=== PATIENT | female | born 1985 | race Two or more races ===

== ENCOUNTER 2018-12-21 17:54 | Emergency (ER) | payer BC ==
[~2018-12-21] VITALS: Ht 157.5 cm; Wt 54.4 kg
[2018-12-21 19:50] VITALS: BP 125/82
[2018-12-21] MEDS ORDERED: SODIUM CHLORIDE 0.9% 1,000 ML IV ONE (20:00)
[2018-12-21 20:02] LABS: Basophils # (auto) 0 uL; Basophils % (auto) 0.3 % (0.0-2.0); Eosinophils # (auto) 0.1 uL; Eosinophils % (auto) 0.6 % (0.0-7.0); Hematocrit 42.4 % (36.0-46.0); Hemoglobin 14.7 g/dL (12.2-16.2); Lymphocytes # (auto) 2.4 uL; Lymphocytes % (auto) 26.2 % (10.0-50.0); Mean Corpuscular Hemoglobin 31.3 pg (28.0-32.0); Mean Corpuscular Hgb Conc. 34.7 g/dL (32.0-36.0); Mean Corpuscular Volume 90.3 fL (80.0-100.0); Monocytes # (auto) 0.5 uL; Monocytes % (auto) 5.5 % (0.0-12.0); Neutrophils # (auto) 6.1 uL; Neutrophils % (auto) 67.4 % (37.0-80.0); Nucleated Red Blood Cells % 0.1 %; Platelet Count (auto) 179 10^3/uL (140-450); Red Blood Cells 4.69 10^6/uL (4.0-5.20); White Blood Cell 9.1 10^3/uL (4.4-10.8)
[2018-12-21 20:08] LABS: Albumin 3.8 g/dL (3.4-5.0); Anion Gap 4 (5-15); Blood Urea Nitrogen 15 mg/dL (7-18); Calcium 8.6 mg/dL (8.5-10.1); Carbon Dioxide 28 mmol/L (21-32); Chloride 109 mmol/L (98-107); Glucose 91 mg/dL (74-106); Potassium 3.4 mmol/L (3.5-5.1); Sodium 141 mmol/L (136-145)
[2018-12-21 20:14] LABS: Alanine Aminotransferase 16 U/L (13-56); Alkaline Phosphatase 62 U/L (45-117); Aspartate Aminotransferase 13 U/L (15-37); BUN/Creatinine Ratio 26.3; Bilirubin, Total 0.2 mg/dL (0.2-1.0); Creatine Kinase IFCC 101 U/L (26-192); GFR African American 156 mL/min; GFR Non-African American 129 mL/min
[2018-12-21 20:17] LABS: Free T3 2.81 pg/mL (2.3-4.2); Free T4 (Free Thyroxine) 0.97 ng/dL (0.89-1.76)
[2018-12-21 21:14] LABS: Urine WBC None Seen /hpf (0 - 5)
[2018-12-21 21:19] LABS: Urine Pregnacy Test Negative (Negative)
[2018-12-21 21:35] LABS: Alcohol, Urine < 3.0 mg/dL (0-5); Amphetamine Screen, Urine NEGATIVE (NEGATIVE); Barbiturate Scree,Urine NEGATIVE (NEGATIVE); Benzodiazephine Screen, Urine NEGATIVE (NEGATIVE); Cannabinoid Screen, Urine NEGATIVE (NEGATIVE); Cocaine Screen, Urine NEGATIVE (NEGATIVE); Opiate Scree,Urine NEGATIVE (NEGATIVE); Phencyclidine Screen, Urine NEGATIVE (NEGATIVE); Urine Bacteria NONE SEEN /hpf (None Seen); Urine Blood Negative /uL (Negative); Urine Specific Gravity 1.011 (1.001-1.035)
== END 2018-12-21 22:19 | disposition home or self-care (01) ==
LOC: ER 17:54
DX: E86.0 Dehydration (principal); G43.909 Migraine, unspecified, not intractable, without status migrainosus; R42 Dizziness and giddiness
CPT/HCPCS: 36415; 71046; 80053; 80307; 81001; 81025; 82550; 83880; 84439; 84443; 84481; 84484; 84702; 85025; 85379; 93005; 99284; J7030

== ENCOUNTER 2019-05-24 20:09 | Emergency (ER) | payer BC ==
[~2019-05-24] VITALS: Ht 157.5 cm; Wt 54.4 kg
[2019-05-24 23:18] VITALS: BP 128/77
[2019-05-25] MEDS ORDERED: KETOROLAC TROMETH 60MG/2ML VIAL IM ONE (00:30)
== END 2019-05-25 02:09 | disposition home or self-care (01) ==
LOC: ER 20:12
DX: J06.9 Acute upper respiratory infection, unspecified (principal); R07.82 Intercostal pain
CPT/HCPCS: 71045; 96372; 99283; J1885

== ENCOUNTER 2024-09-14 17:27 | Emergency (ER) | payer BC, MEDICAID ==
[~2024-09-14] VITALS: Ht 154.9 cm; Wt 60.4 kg
[2024-09-14 17:29] VITALS: TEMP 98.4
--- NOTE | 2024-09-14 18:25 | ED.PDOC ---
History of Present Illness HPI Comments This is a 38-year-old female who comes in with chief complaint of lower abdominal pain. The patient is also having a significant amount of vaginal bleeding since July 26. The patient states that the bleeding has been increasing and the patient is also having some blood clots. She states that the pain is now a 9/10. She denies any back pain but she has been having some nausea as well as dizziness. There has been no fever or chills. She states that when she was 15 years old she had a similar episode but was never transfused with blood. She was able to ambulate into the emergency department's without any difficulty. Chief Complaint: Vaginal Bleed Time Seen by MD: 17:33 Primary Care Provider: NONE Reviewed Notes: Nurses Notes, Medications, Allergies (No allergies to medications) Allergies: Coded Allergies: NO KNOWN ALLERGIES (Unverified , 09/14/24) Home Meds Active Scripts Ciprofloxacin Hcl (Cipro) 500 Mg Tab, 1 TAB PO BID, #14 TAB Prov:ROQUE JENNINGS MD 09/14/24 Information Source: Patient Mode of Arrival: Ambulatory Severity: Moderate Timing: Days Duration: Since onset Prehospital treatment: None Location: Lower abdominal pain which is worse on the right than the left Associated signs and symptoms Increased vaginal bleeding with dizziness and nausea Past Medical History PAST MEDICAL HISTORY: Asthma, High Lipids Past Medical History (Other): Low blood pressure, cyst in the breast Surgical History: Appendectomy, BTL, Cholecystectomy, , Hernia Repair Surgical History (Other): Cyst removed from the breast 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 History Family History Family History: Family hx of DM, Family hx of liver tali Social History Smoker: Non-Smoker Alcohol: Denies ETOH Use Drugs: Denies Drug Use Lives In: Home Constitutional: reports: others (Dizziness); denies: chills, diaphoresis, fatigue, fever, malaise, sweats, weakness EENTM: denies: blurred vision, double vision, ear bleeding, ear discharge, ear drainage, ear pain, ear ringing, eye pain, eye redness, hearing loss, mouth pain, mouth swelling, nasal discharge, nose bleeding, nose congestion, nose pain, photophobia, tearing, throat pain, throat swelling, voice changes, others Respiratory: denies: cough, hemoptysis, orthopnea, SOB at rest, shortness of breath, SOB with excertion, stridor, wheezing, others Cardiovascular: denies: chest pain, dizzy spells, diaphoresis, Dyspnea on exertion, edema, irregular heart beat, left arm pain, lightheadedness, palpitations, PND, syncope, others Gastrointestinal: reports: nausea; denies: abdomen distended, abdominal pain, blood streaked bowels, constipated, diarrhea, dysphagia, difficulty swallowing, hematemesis, melena, poor appetite, poor fluid intake, rectal bleeding, rectal pain, vomiting, others Genitourinary: reports: abnormal vagina bleeding, pain; denies: burning, dyspareunia, dysuria, flank pain, frequency, hematuria, incontinence, , vagina discharge, urgency, others Neurological: reports: dizziness; denies: fainting, headache, left sided numbness, left sided weakness, numbness, paresthesia, pre-existing deficit, right sided numbness, right sided weakness, seizure, speech problems, tingling, tremors, weakness, others Musculoskeletal: denies: back pain, gout, joint pain, joint swelling, muscle pain, muscle stiffness, neck pain, others Integumetry: denies: bruises, change in color, change in hair/nails, dryness, laceration, lesions, lumps, rash, wounds, others Allergic/Immunocompromised: denies: Difficulty Healing, Frequent Infections, Hives, Itching, others Hematologic/Lymphatic: denies: anemia, blood clots, easy bleeding, easy bruising, swollen glands, others Endocrine: denies: excessive hunger, excessive sweating, excessive thirst, excessive urination, flushing, intolerance to cold, intolerance to heat, unexplained weight gain, unexplained weight loss, others Psychiatric: denies: anxiety, bipolar disorder, depression, hopeless, panic disorder, schizophrenia, sleepless, suicidal, others Physical Exam General Appearance: Moderate Distress HEENT: Normal ENT Inspection, Pharynx Normal, TMs Normal Neck: Full Range of Motion, Non-Tender, Normal, Normal Inspection Respiratory: Chest Non-Tender, Lungs Clear, No Accessory Muscle Use, No Respiratory Distress, Normal Breath Sounds Cardiovascular: No Edema, No JVD, No Murmur, No Gallop, Normal Peripheral Pulses, Regular Rate/Rhythm Breast Exam: Deferred Gastrointestinal: LLQ, No Organomegaly, No Pulsatile Mass, Normal Bowel Sounds, RLQ, Soft, Suprapubic Genitalia: Deferred Pelvic: Deferred Rectal: Deferred Extremities: No calf tenderness, Normal capillary refill, Normal inspection, Normal range of motion, Non-tender, No pedal edema Musculoskeletal : Apperance: Normal Neurologic: Alert, batt packer II-XII nml as Tested, No Motor Deficits, Normal Affect, Normal Mood, No Sensory Deficits Cerebellar Function: Normal Reflexes: Normal Skin: Dry, Normal Color, Warm Lymphatic: No Adenopathy Was a procedure done? Was a procedure done?: No Differential Dx Considerations may include: Abnormal vaginal bleeding, generalized weakness, dehydration, ectopic X-Ray, Labs, Meds, VS Vital Signs Date Time Temp Pulse Resp B/P (MAP) Pulse Ox O2 Delivery O2 Flow Rate FiO2 09/14/24 17:29 98.4 67 20 140/86 99 98.4 Lab Test 09/14/24 18:25 09/14/24 17:34 Range/Units White Blood Count 6.9 4.4-10.8 10^3/uL Red Blood Count 4.79 4.0-5.20 10^6/uL Hemoglobin 15.0 12.2-16.2 g/dL Hematocrit 43.9 36.0-46.0 % Mean Corpuscular Volume 91.7 80.0-100.0 fL Mean Corpuscular Hemoglobin 31.2 28.0-32.0 pg Mean Corpuscular Hemoglobin Concent 34.1 32.0-36.0 g/dL Red Cell Distribution Width 14.6 H 11.8-14.3 % Platelet Count 237 140-450 10^3/uL Mean Platelet Volume 9.0 6.9-10.8 fL Neutrophils (%) (Auto) 64.3 37.0-80.0 % Lymphocytes (%) (Auto) 29.5 10.0-50.0 % Monocytes (%) (Auto) 5.0 0.0-12.0 % Eosinophils (%) (Auto) 0.8 0.0-7.0 % Basophils (%) (Auto) 0.4 0.0-2.0 % Neutrophils # (Auto) 4.4 1.6-8.6 10 ^3/uL Lymphocytes # (Auto) 2.0 0.4-5.4 10 ^3/uL Monocytes # (Auto) 0.3 0-1.3 10 ^3/uL Eosinophils # (Auto) 0.1 0-0.8 10 ^3/uL Basophils # (Auto) 0 0-0.2 10 ^3/uL Nucleated Red Blood Cells 0.0 % Beta HCG, Quantitative 0.6 L 1.5-4.2 mIU/mL Urine Color Light-red Yellow Urine Clarity Ex.turbid Clear Urine pH 5.5 5.0-9.0 Urine Specific Orosi 1.025 1.001-1.035 Urine Protein 1+ H Negative Urine Ketones Negative Negative Urine Blood 3+ H Negative /uL Urine Nitrite Negative Negative Urine Bilirubin Negative Negative Urine Urobilinogen Normal Negative mg/dL Urine Leukocyte Esterase 1+ Negative /uL Urine RBC 8895 0 - 4 /hpf Urine WBC Clumps Present None Seen /hpf Urine Microscopic WBC 212 H 0-5 /HPF Urine Squamous Epithelial Cells Few <5 /hpf Urine Bacteria None seen None Seen /hpf Urine Mucus Few None Seen Urine Glucose Normal Normal mg/dL TECHNIQUE: Multiple real-time grayscale transabdominal sonographic images along with color and duplex Doppler of the uterus and ovaries were obtained. IMPRESSION: 1. Follicles in the ovaries bilaterally. 2. Thickened endometrium Images Reviewed?: Images reviewed and evaluated by me Time of 1ST Reevaluation: 18:24 Reevaluation 1ST: Improved Patient Education/Counseling: Diagnosis, Treatment, Prognosis, Need For Follow Up Family Education/Counseling: No Family Present SEPSIS Sepsis Screen Date sepsis recognized/suspect: Sep 14, 2024 Time Sepsis recognized/suspect: 1733 Recent Procedure: No On Antibiotic Therapy: No Respiratory Rate >20: No Heart Rate >90: No Temp<36 C (96.8 F) or >38.3 C: No SBP <90 or MAP <65 mmHG: No New Acute Mental Status Change: No Is the patient on CPAP, BIPAP,: No Physician Orders Pelvic (09/14/24 18:10) Vital Signs Date Time Temp Pulse Resp B/P (MAP) Pulse Ox O2 Delivery O2 Flow Rate FiO2 09/14/24 17:29 98.4 67 20 140/86 99 98.4 Laboratory Tests Test 09/14/24 18:25 White Blood Count 6.9 10^3/uL (4.4-10.8) Departure 1 Departure Time of Disposition: 20:22 Impression: Primary Impression: Acute cystitis Qualified Codes: N30.01 - Acute cystitis with hematuria Additional Impression: Abnormal vaginal bleeding Disposition: HOME / SELF CARE / HOMELESS Condition: Fair e-Prescriptions Ciprofloxacin Hcl (Cipro) 500 Mg Tab 1 TAB PO BID, #14 TAB Prov: ROQUE EJNNINGS MD 09/14/24 Critical Care Note Critical Care Time?: No Stability Stability form required: No Heart Score Heart Score: Heart Score Response (Comments) Value History N/A 0 EKG N/A 0 Age N/A 0 Risk Factors N/A 0 Troponin N/A 0 Total 0 I personally scribed for ROQUE JENNINGS MD ([email or web address]) on 09/14/24 at 19:22. Electronically submitted by Sara Esquivel ([email or web address]). ROQUE JENNINGS MD Sep 14, 2024 18:25
[2024-09-14 18:51] LABS: Hematocrit 43.9 % (36.0-46.0); Hemoglobin 15.0 g/dL (12.2-16.2); Mean Corpuscular Hemoglobin 31.2 pg (28.0-32.0); Mean Corpuscular Volume 91.7 fL (80.0-100.0); Nucleated Red Blood Cells % 0.0 %
--- NOTE | 2024-09-14 19:17 | DVH ---
INDICATION: Increased vaginal bleeding as well as abdominal pain TECHNIQUE: Multiple real-time grayscale transabdominal sonographic images along with color and duplex Doppler of the uterus and ovaries were obtained. COMPARISON: None FINDINGS: The uterus measures 11.89 x 5.59 x 4.52 cm. The endometrial stripe measures 17.4 mm. The right ovary measures 2.94 x 1.28 x 2.27 cm. Volume of the right ovary is 4.49 cc. There is a 1.3 8 x 0.9 x 1.09 cm anechoic mass in the right ovary likely a follicle. The left ovary measures 1.74 by 1.4 x 2.08 cm. Volume of the left ovary is 2.66 cc.. There is a 1.1 3 x 0.79 x 1.11 cm anechoic lesion in the left ovary most likely a follicle. Subsequent color and duplex Doppler interrogation of the ovaries demonstrated symmetric vascular flow to both ovaries, though this does not exclude the possibility of torsion due to the dual blood suppl y. IMPRESSION: 1. Follicles in the ovaries bilaterally. 2. Thickened endometrium
[2024-09-14 19:51] LABS: Urine Protein, UAD 1+ (Negative); Urine WBC Clumps PRESENT /hpf (None Seen)
[2024-09-14] MEDS ORDERED: CIPR-173 PO (20:22)
[2024-09-14 20:52] VITALS: BP 111/70; PULSE 69; RESP 18; O2SAT 98
== END 2024-09-14 20:53 | disposition home or self-care (01) ==
LOC: ER 17:27
DX: N30.90 Cystitis, unspecified without hematuria (principal); E78.5 Hyperlipidemia, unspecified; J45.909 Unspecified asthma, uncomplicated; N93.9 Abnormal uterine and vaginal bleeding, unspecified; Z90.49 Acquired absence of other specified parts of digestive tract; Z98.51 Tubal ligation status; Z98.890 Other specified postprocedural states
CPT/HCPCS: 36415; 76856; 81001; 84702; 85025

== ENCOUNTER 2025-02-03 00:24 | Emergency (ER) | payer MEDICAID ==
[~2025-02-03] VITALS: Ht 154.9 cm; Wt 63.3 kg
[~2025-02-03 00:24] MED LIST: CIPR-173 PO
--- NOTE | 2025-02-03 04:50 | ED.PDOC ---
History of Present Illness HPI Comments 39-year-old, Georgian-speaking female who presents with chief complaint of flu- like symptoms. Patient endorses on having body aches, headaches, cough, congestion, and mild shortness of breath for over the past few days. No relief or improvement with [id number] pain and flu medications. She denies any fever, chills, nausea, vomiting, or further acute symptoms. REVIEW OF SYSTEMS: General: No fever, no chills, HEENT: No neck pain, no blurred vision Cardiac: No chest pain. No palpitations. Lungs: shortness of breath, cough, congestion GI: No abdominal pain, no vomiting Musculoskeletal: Body aches. No joint pain , no back pain Skin: No rash, no wound Neuro: Headache, no dizziness, no syncope PHYSICAL EXAM: General: Awake, alert and oriented. No acute distress. Skin: Skin in warm, dry and intact without rashes or lesions. HEENT: The head is normocephalic and atraumatic. Conjunctivae are clear without exudates or hemorrhage. Sclera is non-icteric. Neck: Normal range of motion. No JVD. Cardiac: Regular rate Respiratory: No signs of respiratory distress. No Stridor. Extremities: Upper and lower extremities are atraumatic in appearance without deformity. Neurological: The patient is awake, alert and oriented to person, place, and time with normal speech. Speech is clear. There is no facial asymmetry. Psychiatric: Appropriate mood and affect. Good judgement and insight. Chief Complaint: Flu like Time Seen by MD: 01:58 Primary Care Provider: NONE Reviewed Notes: Nurses Notes, Medications, Allergies Allergies: Coded Allergies: NO KNOWN ALLERGIES (Unverified , 09/14/24) Home Meds Active Scripts Ibuprofen (Ibuprofen) 600 Mg Tab, 1 TAB PO TID, #15 TAB Prov:NAYA AQUINO MD 02/03/25 Acetaminophen (Acetaminophen Er) 650 Mg Tab, 650 MG PO TIDPRN PRN, #15 TAB Prov:NAYA AQUINO MD 02/03/25 Ciprofloxacin Hcl (Cipro) 500 Mg Tab, 1 TAB PO BID, #14 TAB Prov:ROQUE JENNINGS MD 09/14/24 Information Source: Patient Mode of Arrival: Ambulatory Severity: Moderate Timing: Days Duration: Since onset Prehospital treatment: Pain Meds, Treatment Past Medical History PAST MEDICAL HISTORY: Asthma, High Lipids Surgical History: Appendectomy, BTL, Cholecystectomy, , Hernia Repair 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 Was a procedure done?: No Differential Dx Considerations may include: Viral illness, pharyngitis, otitis media, bacteremia, pneumonia, UTI, mening itis, sepsis, other X-Ray, Labs, Meds, VS Vital Signs Date Time Temp Pulse Resp B/P (MAP) Pulse Ox O2 Delivery O2 Flow Rate FiO2 02/03/25 00:30 100.6 115 20 128/69 95 100.6 Lab Test 02/03/25 04:00 Range/Units Influenza Type A Antigen Negative Negative Influenza Type B Antigen Negative Negative SARS-CoV-2 Antigen (Rapid) Negative NEGATIVE Time of 1ST Reevaluation: 04:50 Reevaluation 1ST: Unchanged Patient Education/Counseling: Need For Follow Up Family Education/Counseling: No Family Present SEPSIS Sepsis Screen Date sepsis recognized/suspect: Feb 03, 2025 Time Sepsis recognized/suspect: 0036 Recent Procedure: No On Antibiotic Therapy: No Respiratory Rate >20: No Heart Rate >90: Yes Temp<36 C (96.8 F) or >38.3 C: No SBP <90 or MAP <65 mmHG: No New Acute Mental Status Change: No Is the patient on CPAP, BIPAP,: No Vital Signs Date Time Temp Pulse Resp B/P (MAP) Pulse Ox O2 Delivery O2 Flow Rate FiO2 02/03/25 00:30 100.6 115 20 128/69 95 100.6 Departure 1 Departure Time of Disposition: 05:56 Impression: Primary Impression: Viral syndrome Disposition: 01 HOME / SELF CARE / HOMELESS Condition: Stable Additional Instructions: INSTRUCCIONES DE NOEL DE Urgencias Instrucciones: Radha atentamente todas las instrucciones proporcionadas en mohsen paquete. Aunque le hayan dado el noel del Departamento de Emergencias, esto no significa que tenga un "certificado de buena jonny". [] Hoy no se kinney realizado ningn diagnstico definitivo para nancy sntomas. Es posible que ests en proceso de desarrollar agustín enfermedad grave. Es por eso que debe regresar al servicio de urgencias sin falta si presenta algn sntoma nuevo o que empeora (especialmente si nancy sntomas incluyen dolor en el pecho, dificultad para respirar, dolor abdominal, fiebre, dolor de prieto, confusin, dificultad para aníbal o caminar). Darlin es muy importante que consulte a un mdico de atencin primaria dentro de los prximos 3 a 5 ricardo para realizar un seguimiento. Si no puede conseguir agustín chai, regrese al servicio de urgencias para agustín nueva evaluacin. Infecciones virales: Instrucciones de cuidado Descripcin general No se siente rodolfo, josé manuel no se sabe con certeza qu lo est causando. Podra tener agustín infeccin viral. Los virus causan muchas enfermedades, zara el resfriado comn, la gripe, la fiebre, las erupciones cutneas y la diarrea, las nuseas y los vmitos, sntomas de agustín infeccin estomacal. Quizs se pregunte si los antibiticos podran ayudarle a sentirse mejor. José Manuel los antibiticos solo tratan las infecciones causadas por bacterias. No son eficaces contra los virus. La buena noticia es que las infecciones virales no suelen ser graves. La mayora desaparecen en pocos ricardo sin tratamiento mdico. Mientras tanto, hay algunas cosas que puedes hacer para sentirte ms cmodo. El seguimiento es fundamental para lujan tratamiento y seguridad. Asegrese de programar y acudir a todas nancy citas, y llame a lujan mdico si tiene algn problema. Darlin es recomendable estar al tanto de los resultados de nancy pruebas y llevar agustín lista de los medicamentos que brennan. Info Analyst puedes cuidarte en casa? Descanse mucho si se siente cansado. Veyo un analgsico de venta gabriel si es necesario, zara acetaminofn (Tylenol), ibuprofeno (Advil, Motrin) o naproxeno (Aleve). Radha y siga todas las instrucciones de la etiqueta. No le d aspirina a menores de 20 aos. Se kinney relacionado con el sndrome de Alberto, agustín enfermedad grave. Tenga cuidado al lavon medicamentos de venta gabriel para el resfriado o la gripe y Tylenol al mismo tiempo. Muchos de estos medicamentos contienen acetaminofn, que es Tylenol. Radha las etiquetas para asegurarse de no lavon ms de la dosis recomendada. Demasiado acetaminofn (Tylenol) puede ser perjudicial. Kareen mucho lquido. Si padece alguna enfermedad renal, cardaca o heptica y necesita limitar lujan consumo de lquidos, consulte con lujan mdico antes de aumentar la cantidad de lquido que jaz. Qudese en casa y no vaya al trabajo, a la escuela ni a otros lugares pblicos mientras tenga fiebre. Cundo debes pedir ayuda? Llame al 911 en cualquier momento que considere que necesita atencin de emergencia. Por ejemplo, llame si: Tienes graves dificultades para respirar. Te desmayaste (perdiste el conocimiento). Llame a lujan mdico ahora o busque atencin mdica inmediata si: Parece que te ests poniendo mucho ms enfermo. Tiene fiebre nueva o ms noel. Tienes un linda dolor de prieto. Tienes el brodie rgido. Tiene stiven en las heces. Tiene un nuevo dolor abdominal o el dolor empeora. Tienes un nuevo sarpullido. Ests confundido o desorientado. Tienes problemas para pensar o concentrarte. Preste atencin a los cambios en lujan jonny y asegrese de comunicarse con lujan mdico si: Empiezas a mejorar y luego empeoras. No mejoras zara esperabas Crditos para infecciones virales: Instrucciones de cuidado Actualizado al: 30 2024 Autor: Personal de [employer] Junta de revisin clnica Toda la educacin de [employer] es revisada por un equipo que incluye mdicos, enfermeras, profesionales avanzados, dietistas registrados y otros profesionales de la jonny. e-Prescriptions Ibuprofen (Ibuprofen) 600 Mg Tab 1 TAB PO TID, #15 TAB Prov: NAYA AQUINO MD 02/03/25 Acetaminophen (Acetaminophen Er) 650 Mg Tab 650 MG PO TIDPRN PRN, #15 TAB Prov: NAYA AQUINO MD 02/03/25 Comments Patient well-appearing, nontoxic. Advised prompt follow-up with PCP, return to the ED with any new, worsening or concerning symptoms. Critical Care Note Critical Care Time?: No Stability Stability form required: No Heart Score Heart Score: Heart Score Response (Comments) Value History N/A 0 EKG N/A 0 Age N/A 0 Risk Factors N/A 0 Troponin N/A 0 Total 0 I personally scribed for NAYA AQUINO MD ([email or web address]) on 02/03/25 at 04:50. Electronically submitted by Eric Wilkins ([email or web address]). I personally scribed for NAYA AQUINO MD ([email or web address]) on 02/03/25 at 06:24. Electronically submitted by Eric Wilkins ([email or web address]). NAYA AQUINO MD Feb 03, 2025 04:50
[2025-02-03 05:37] LABS: COVID19 ANTIGEN SOFIA FIA NEGATIVE (NEGATIVE)
[2025-02-03] MEDS ORDERED: ACET650T12 PO (05:58)
[2025-02-03] MEDS ORDERED: IBUP-1454 PO (05:58)
[2025-02-03 06:58] VITALS: BP 106/75; TEMP 98.6
[2025-02-03 06:59] VITALS: PULSE 95; RESP 18; O2SAT 97
[2025-02-03] MEDS: ACETAMINOPHEN 325 MG TAB PO ONE (07:10)
[2025-02-03] MEDS: IBUPROFEN 600 MG TAB PO ONE (07:10)
== END 2025-02-03 07:08 | disposition home or self-care (01) ==
LOC: ER 00:24
DX: B34.9 Viral infection, unspecified (principal); J45.909 Unspecified asthma, uncomplicated; Z90.49 Acquired absence of other specified parts of digestive tract; Z98.890 Other specified postprocedural states; Z20.822 Contact with and (suspected) exposure to COVID-19
CPT/HCPCS: 36415; 87426; 87804